=== PATIENT | female | born 1980 | race Two or more races ===

== ENCOUNTER 2019-09-25 11:33 | Inpatient (IN) | payer OTHER ==
[~2019-09-25] VITALS: Ht 170.2 cm; Wt 4.1 kg
[2019-10-12] MEDS ORDERED: PRENATAL CAPLE1 EAC1 PO (10:39)
[2019-10-15] MEDS ORDERED: OXYC1TAB9 PO (09:34)
== END 2019-10-15 13:48 | disposition home or self-care (01) | DRG 788 ==
LOC: OB/GYN 10-12 10:09 → LDR 10-12 10:09 → O/R 10-12 13:18 → OB/GYN 10-12 14:54
PROVIDERS: ADMIT Obstetrics & Gynecology Maternal & Fetal Medicine; ATTEND Obstetrics & Gynecology Maternal & Fetal Medicine
PROC: 4A1HXFZ Monitoring of Products of Conception, Cardiac Rhythm, External Approach (ICD-10-PCS; 2019-10-12)
PROC: 10907ZC Drainage of Amniotic Fluid, Therapeutic from Products of Conception, Via Natural or Artificial Opening (ICD-10-PCS; 2019-10-12)
PROC: 3E033VJ Introduction of Other Hormone into Peripheral Vein, Percutaneous Approach (ICD-10-PCS; 2019-10-12)
PROC: 10D00Z1 Extraction of Products of Conception, Low, Open Approach (ICD-10-PCS; principal; 2019-10-12 11:45)
DX: O82 Encounter for cesarean delivery without indication (principal); O34.211 Maternal care for low transverse scar from previous cesarean delivery; Z3A.38 38 weeks gestation of pregnancy; Z37.0 Single live birth; Z20.828 Contact with and (suspected) exposure to other viral communicable diseases